=== PATIENT | female | born 1990 | race Hispanic/Latino ===

== ENCOUNTER 2017-10-21 09:45 | Outpatient (CLI) | payer OTHER ==
--- NOTE | 2017-10-21 11:05 | RAD ---
TWO VIEWS OF THE CHEST: DATE: 10/21/17. COMPARISON: None. HISTORY: Productive cough. FINDINGS: The lungs are clear. Heart and mediastinal contours are unremarkable. IMPRESSION: No acute findings. POS: [facility]
== END 2017-10-21 09:46 | disposition home or self-care (01) ==
LOC: MADRAD 09:45
PROVIDERS: ATTEND Family Medicine
DX: R05 Cough (principal)
CPT/HCPCS: 71046